=== PATIENT | female | born 1960 | race Caucasian/White ===

== ENCOUNTER → 2016-06-15 | Outpatient (CLI) | payer OTHER ==
--- NOTE | 2016-06-15 17:31 | DX ---
Lumbar Spine, Two Views 9:42 a.m. Indication: Follow up lumbar spine fusion. Comparison: May 03, 2016. Technique: Upright AP and lateral views. Findings: The lumbar spine is anatomically aligned. The posterior fusion construct at L4-L5, consist ing of dual posterior rods, bilateral transpedicular screws and radiopaque device in the L4-L5 interb desmond space is unchanged. No perihardware fracture or lucency. Mild degenerative disk and facet arthrop athy at L5-S1 are unchanged. Impression: L4-L5 posterior fusion construct remains well seated.
== END ==
LOC: CIMAGING 09:34
PROVIDERS: ATTEND Physician Assistant Surgical
DX: Z09 Encounter for follow-up examination after completed treatment for conditions other than malignant neoplasm (principal); Z98.1 Arthrodesis status
CPT/HCPCS: 72100-PO

== ENCOUNTER → 2016-07-24 | Outpatient (CLI) | payer OTHER | LOC: CIMAGING 11:07 | PROVIDERS: ATTEND Physician Assistant | DX: Z09 Encounter for follow-up examination after completed treatment for conditions other than malignant neoplasm (principal); Z98.890 Other specified postprocedural states | CPT/HCPCS: 72100-PO ==

== ENCOUNTER → 2016-10-15 | Outpatient (CLI) | payer OTHER | LOC: CIMAGING 11:11 | PROVIDERS: ATTEND Family Medicine | DX: Z12.31 Encounter for screening mammogram for malignant neoplasm of breast (principal); Z80.3 Family history of malignant neoplasm of breast | CPT/HCPCS: G0202 ==

== ENCOUNTER → 2016-11-06 | Outpatient (CLI) | payer OTHER | LOC: CIMAGING 12:56 | PROVIDERS: ATTEND Physician Assistant | DX: Z47.89 Encounter for other orthopedic aftercare (principal); Z98.1 Arthrodesis status | CPT/HCPCS: 72100-PO ==

== ENCOUNTER 2017-04-14 17:34 | Observation (INO) | payer OTHER ==
--- NOTE | 2017-04-14 17:50 | EDPHY ---
HPI/HX/ROS/PE/MDM Narrative: CHIEF COMPLAINT: Right leg DVT HPI: This patient is a 56 year old female arriving at the request of her primary care physician, Dr. Kilpatrick, for evaluation of a right-sided DVT. Ultrasound conducted earlier this evening shows deep vein thrombosis of the right popliteal and peroneal veins. She presented to her primary care physician's office with pain in her right lower calf onset one week ago. Now, her pain is localized more behind her knee. She denies any recent travel. She did feel "wheezy" and out of breath one week ago, but denies any current chest pain or shortness of breath. She has history of superficial thrombophlebitis, but no other known clotting disorders. She denies any recent trauma or illness; no vomiting, diarrhea, urinary complaints, headache, fever, or other associated symptoms. REVIEW OF SYSTEMS: Aside from elements discussed in the HPI, a comprehensive 10-point review of systems was reviewed and is negative. PMH: Remote history of epilepsy. Superficial thrombophlebitis. Spinal surgery. SOCIAL HISTORY: . Lives in [place]. at bedside. PHYSICAL EXAM: General:Patient is alert, in no acute distress. ENT:Eyes are normal to inspection. ENT inspection normal. Neck: Normal inspection. Full range of motion. Respiratory:No respiratory distress. Breath sounds normal bilaterally. Cardiovascular: Regular rate and rhythm. Strong peripheral pulses. Normal cap refill. Abdomen:The abdomen is nontender to palpation. There are no peritoneal signs. There are normal bowel sounds. Back: Normal to inspection. No tenderness to palpation. Skin: Normal color. No rash. Warm and dry. Extremities: Right lower extremity swollen with 1+ pedal edema. Mild tenderness to right popliteal area. Full range of motion. Neuro: Oriented x3. Normal motor function. Normal sensory function. ED Course: 56 year old female presents with deep vein thrombosis of the right popliteal and peroneal veins, diagnosed by ultrasound of the right lower extremity this evening. I spoke with Dr. Rousseau, the patient's primary care physician, prior to her arrival. Exam reveals swollen right lower extremity with 1+ pedal edema as well as mild tenderness to the right popliteal area. Plan for labs including CBC, BMP, Troponin. Due to patient's reported shortness of breath, plan for CTA chest to rule out PE. Laboratory studies unremarkable. Troponin elevated at 0.056. EKG was ordered and interpreted by myself. Please see [employer] system for official reading. Spoke with Dr. Hahn, radiologist. CTA positive for bilateral pulmonary emboli. Plan to admit. 19:[address] Stanley, hospitalist. She accepts admission for bilateral pulmonary emboli and DVT. 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 Recommend knee MRI for further evaluation. Extremity Venous Study 04/14/17 16:30 Impression: Deep vein thrombosis of the right popliteal and peroneal veins. Dr. Hahn discussed these findings by telephone with Dr. George at 1719 hours on 04/14/2017. Imaging: Discussed imaging studies w/ inbound call center representative Radiologist, I viewed and interpreted images myself Laboratory Results: Laboratory Results 04/14/17 18:00 04/14/17 18:00 04/14/17 04/14/17 04/14/17 18:00 18:00 18:00 WBC 6.42 10^3/uL 10^3/uL (3.80-9.50) RBC 4.35 10^6/uL 10^6/uL (4.18-5.33) Hgb 13.2 g/dL g/dL (12.6-16.3) POC Hgb 13.6 gm/dL gm/dL (12.6-16.3) Hct 38.4 % % (38.0-47.0) POC Hct 40 % % (38-47) MCV 88.3 fL fL (81.5-99.8) MCH 30.3 pg pg (27.9-34.1) MCHC 34.4 g/dL g/dL (32.4-36.7) RDW 12.0 % % (11.5-15.2) Plt Count 272 10^3/uL 10^3/uL (150-400) MPV 8.8 fL fL (8.7-11.7) Neut % (Auto) 65.3 % % (39.3-74.2) Lymph % (Auto) 25.2 % % (15.0-45.0) [place] % (Auto) 6.2 % % (4.5-13.0) Eos % (Auto) 2.6 % % (0.6-7.6) Baso % (Auto) 0.5 % % (0.3-1.7) Nucleat RBC Rel Count 0.0 % % (0.0-0.2) Absolute Neuts (auto) 4.19 10^3/uL 10^3/uL (1.70-6.50) Absolute Lymphs (auto) 1.62 10^3/uL 10^3/uL (1.00-3.00) Absolute Monos (auto) 0.40 10^3/uL 10^3/uL (0.30-0.80) Absolute Eos (auto) 0.17 10^3/uL 10^3/uL (0.03-0.40) Absolute Basos (auto) 0.03 10^3/uL 10^3/uL (0.02-0.10) Absolute Nucleated RBC 0.00 10^3/uL 10^3/uL (0-0.01) Immature Gran % 0.2 % % (0.0-1.1) Immature Gran # 0.01 10^3/uL 10^3/uL (0.00-0.10) POC Sodium 143 mEq/L mEq/L (134-144) Sodium 140 mEq/L mEq/L (134-144) POC Potassium 3.9 mEq/L mEq/L (3.3-5.0) Potassium 4.1 mEq/L mEq/L (3.5-5.2) POC Chloride 106 mEq/L mEq/L (97-110) Chloride 104 mEq/L mEq/L (97-110) Carbon Dioxide 25 mEq/l mEq/l (22-31) Anion Gap 11 mEq/L mEq/L (8-16) POC BUN 12 mg/dL mg/dL (7-23) BUN 13 mg/dL mg/dL (7-23) Creatinine 0.8 mg/dL mg/dL (0.6-1.0) POC Creatinine 0.8 mg/dL mg/dL (0.6-1.0) Estimated GFR > 60 Glucose 89 mg/dL mg/dL (70-100) POC Glucose 90 mg/dL mg/dL (70-100) Calcium 9.3 mg/dL mg/dL (8.5-10.4) Troponin I 0.056 ng/mL H ng/mL (0.000-0.034) Point of Care Test Results: 04/14/17 18:00 POC Sodium 143 POC Potassium 3.9 POC Chloride 106 POC BUN 12 POC Creatinine 0.8 POC Glucose 90 General Time Seen by Provider: 04/14/17 17:47 Initial Vital Signs: Initial Vital Signs Temperature (C) 37 C 04/14/17 17:40 Heart Rate 80 04/14/17 17:40 Respiratory Rate 18 04/14/17 17:40 Blood Pressure 164/86 H 04/14/17 17:40 O2 Sat (%) 94 04/14/17 17:40 O2 Delivery Mode Room Air Allergies/Adverse Reactions: No Known Allergies Allergy (Verified 04/14/17 17:37) Home Medications: Medication Instructions Recorded Cholecalciferol Vit D3 [Vitamin D3 5,000 units PO DAILY 03/17/16 (*)] Simvastatin 10 mg PO HS 03/17/16 carBAMazepine [TEGretol (*)] 200 mg PO HS 03/17/16 Acetaminophen [Tylenol 325mg (*)] 325 - 650 mg PO Q4HRS PRN #0 tab 05/05/16 Rivaroxaban [Xarelto 15mg (*)] 15 mg PO BIDMEAL #42 tab 04/15/17 Rivaroxaban [Xarelto] 20 mg PO DAILY #9 tablet 04/15/17 Departure - Departure Disposition: [facility] Inpatient Acute Clinical Impression: Bilateral pulmonary embolism DVT (deep venous thrombosis) Qualifiers: DVT location: lower extremity Affected thrombotic vein of extremity: popliteal Chronicity: acute Laterality: right Qualified Code(s): I82.431 - Acute embolism and thrombosis of right popliteal vein Condition: Fair Report Scribed for: Jose Johnson Report Scribed by: Phylicia Valenzuela Date of Report: 04/14/17 Time of Report: 17:53 Physician Review and Approval Statement: Portions of this note were transcribed by an ED scribe. I personally performed the history, physical exam, and medical decision making; and confirm the accuracy of the information in the transcribed note.
[2017-04-14 18:14] LABS: % IMMATURE GRANULYOCYTES 0.2 % (0.0-1.1); ABSOLUTE IMMATURE GRANULOCYTES 0.01 10^3/uL (0.00-0.10); ADD DIFF? NO; ADD MORPH? NO; ADD SCAN? NO; ATYPICAL LYMPHOCYTE FLAG 10 (0-99); FRAGMENT RBC FLAG 0 (0-99); HEMATOCRIT 38.4 % (38.0-47.0); HEMOGLOBIN 13.2 g/dL (12.6-16.3); LEFT SHIFT FLG 0 (0-99); LIPEMIA HEMOLYSIS FLAG 90 (0-99); MEAN CELL HEMOGLOBIN 30.3 pg (27.9-34.1); MEAN CELL HEMOGLOBIN CONCENTR. 34.4 g/dL (32.4-36.7); MEAN CELL VOLUME 88.3 fL (81.5-99.8); MEAN PLATELET VOLUME 8.8 fL (8.7-11.7); PLATELET CLUMPS FLAG 0 (0-99); PLATELET COUNT 272 10^3/uL (150-400); RED BLOOD CELL COUNT 4.35 10^6/uL (4.18-5.33)
[2017-04-14] MEDS ORDERED: IOPAMIDOL (ISOVUE 370) 100 ML BTL IV ONE ×2 (18:25→18:55)
[2017-04-14 18:29] LABS: ANION GAP 11 mEq/L (8-16); CALCIUM 9.3 mg/dL (8.5-10.4); CARBON DIOXIDE 25 mEq/l (22-31); CHLORIDE 104 mEq/L (97-110); CREATININE 0.8 mg/dL (0.6-1.0); GLOMERULAR FILTRATION RATE > 60; GLUCOSE 89 mg/dL (70-100); POTASSIUM 4.1 mEq/L (3.5-5.2); SODIUM 140 mEq/L (134-144)
[2017-04-14 18:52] LABS: TROPONIN I 0.056 ng/mL (0.000-0.034)
--- NOTE | 2017-04-14 19:26 | CPEKG ---
Heart Rate: 76 RR Interval: 789 P-R Interval: 131 QRSD Interval: 92 QT Interval: 396 QTC Interval: 446 P [place]: 0 QRS [place]: 48 T Wave [place]: 46 EKG Severity - NORMAL ECG - EKG Impression: SINUS RHYTHM Electronically Signed By: Jose Woody 16-Apr-2017 16:45:40
[2017-04-14] MEDS ORDERED: ONDANSETRON 4 MG/2 ML VIAL IVP PRN (20:18)
[2017-04-14] MEDS ORDERED: ONDANSETRON DISINTEGRATING 4 MG TAB PO PRN (20:18)
[2017-04-14] MEDS ORDERED: ACETAMINOPHEN 325 MG TAB PO PRN (20:18)
--- NOTE | 2017-04-14 22:58 | GHP ---
[f rep st] HISTORY AND PHYSICAL DATE OF ADMISSION: 04/14/2017 CHIEF COMPLAINT: Right lower extremity DVT. HISTORY OF PRESENT ILLNESS: A 56-year-old female with history of lumbar stenosis, chronic back pain, knee pain and recent polypectomy, presenting with right leg pain and swelling for 1 week. Some shortness of breath with walking and chest tightness with deep inspiration. No loss of consciousness, dizziness or lightheadedness. She recently had a colonoscopy that showed a large polyp, and subsequently underwent outpatient polypectomy at a facility in [facility]. After the procedure, she was less mobile than her normal. She does report decreased activity since a spinal surgery in April 2016. No personal or family history of clots. The polyp pathology was a tubulovillous adenoma. She has had a recent negative mammogram and Pap smear. In the emergency room, underwent an ultrasound showing a right leg DVT. CTA showed moderate volume of pulmonary emboli in the bilateral upper right middle and bilateral lower lobe pulmonary arterial branches. REVIEW OF SYSTEMS: I completed a 10-point review of systems, negative except as noted in HPI. PAST MEDICAL HISTORY: 1. Lumbar stenosis. 2. Epilepsy, but no seizures for 20 years. 3. External hemorrhoids, nonbleeding. 4. Recent polypectomy, path showing a tubulovillous adenoma. 5. Obesity. 6. Arthritis. 7. Hypertension. PAST SURGICAL HISTORY: 1. Posterior-lateral L4-L5 fusion. 2. L4-5 laminectomy. SOCIAL HISTORY: Lives in [place] with her . Originally from [place]. No alcohol, tobacco, or illicits. FAMILY HISTORY: No clots. HOME MEDICATIONS: Tegretol 200 mg at bedtime, simvastatin 10 mg at bedtime, vitamin D3, Tylenol as needed. ALLERGIES: No known drug allergies. PHYSICAL EXAMINATION: VITAL SIGNS: Temperature 37, blood pressure 164/86, heart rate in the 80s, 94% on room air, respirations 18. GENERAL: Overweight female, sitting up in bed, in no acute distress. HEENT: PERRLA. EOMI. Oropharynx clear. CV: Regular rate and rhythm. No murmurs, gallops, or rubs. No reproducible chest pain. LUNGS: Clear to auscultation. No wheezing or crackles. ABDOMEN: Soft, nontender, nondistended. Positive bowel sounds. : No suprapubic tenderness. MUSCULOSKELETAL: Right leg larger than left with mild erythema and tenderness over the calf and popliteal region. NEURO: 2 through 12 intact. PSYCH: Alert and oriented x3. IMAGING: CTA, moderate volume of pulmonary emboli in bilateral upper right middle and bilateral lobe pulmonary arterial branches. Ultrasound, DVT of right popliteal and peroneal veins. LABORATORY DATA: WBC 6.4, hemoglobin 13, hematocrit 38, platelets 272. D- dimer 6.7, sodium 143, potassium 3.9, chloride 106, creatinine 0.8. Troponin 0.056, calcium 9.3. EKG, personally reviewed by me, normal sinus rhythm, possible chondromalacia of patella. ASSESSMENT AND PLAN: 1. Acute pulmonary embolism/ right leg DVT: suspect this is provoked given increased immobility. Had a long discussion with patient and AC and she opted for Xarelto.15 mg twice daily for 21 days, then 20 mg daily after. She should follow up with her PCP. Will need at least 3 months treatment. She is hemodynamically stable not requiring oxygen. She has a mild bump in her troponin. Repeat this and monitor on telemetry in the PCU. 2. Epilepsy. Continue Tegretol. 3. Indeterminate troponin, likely secondary to clot burden. She is again hemodynamically stable. Plan as stated above. 4. Obesity. Counseled on nutrition, exercise. DIET: Regular. DEEP VENOUS THROMBOSIS PROPHYLAXIS: Is on Xarelto. DISPOSITION: Patient warrants observation admission given acute PE, mild indeterminate troponin warranting telemetry and further serial enzymes. /[id number]/MODL MTDD
[2017-04-14] MEDS ORDERED: CARBAMAZEPINE 100 MG CHEWABLE TAB PO SCH (23:45)
[2017-04-14] MEDS ORDERED: PRAVASTATIN SODIUM 20 MG TAB PO SCH (23:59)
[2017-04-15] MEDS: RIVAROXABAN 15 MG TAB PO SCH ×2 (00:08→08:10)
[2017-04-15 04:00] LABS: HEMATOCRIT 36.4 % (38.0-47.0); HEMOGLOBIN 12.8 g/dL (12.6-16.3); MEAN CELL HEMOGLOBIN 31.3 pg (27.9-34.1); MEAN CELL HEMOGLOBIN CONCENTR. 35.2 g/dL (32.4-36.7); RED BLOOD CELL COUNT 4.09 10^6/uL (4.18-5.33)
[2017-04-15 07:12] VITALS: BP 145/96; PULSE 69; RESP 16; TEMP 98.4; O2SAT 92
--- NOTE | 2017-04-15 15:22 | ASDISCHSUM ---
Discharge Information Plan Status:Home with No Needs Medically Cleared to Leave:04/14/2017 Discharge Date:04/15/2017 11:30 AM CM D/C Disposition:Home, Routine, Self-Care ADT D/C Disposition:Home, Routine, Self-Care Projected Discharge Date:04/15/2017 11:30 AM Transportation at D/C:Family Discharge Delay Reason: Follow-Up Date:04/15/2017 11:30 AM Discharge Slot: Final Diagnosis:Acute PE, RLE DVT, Epilepsy, interdeterinate troponin, obesity Placement Information Patient Contact Information Contact Name:TARI Relationship: Address:[address] Work Phone: City:[facility] Phone: [facility] Code:[place] [address] Email: Financial Information Financial Class:HMO and PPO Plans Primary Plan Desc:[employer] Primary Plan Number:[id number] Secondary Plan Desc: Secondary Plan Number: Assessment Information [facility] CM Progress Note CM Note CM Note Notes: Reviewed chart regarding discharge plan, pt's progress. Per MD notes, pt admitted for acute pulmonary embolism, right leg DVT w/ hx of epilepsy and obesity. Pt to discharge home independently today w/ family support and no identified needs. Pt to follow up as directed. No IM signed, not applicable. CM avail for any further issues or concerns. Date Signed: 04/15/2017 03:20 PM Electronically Signed By:Fabiana Desai RN Intervention Information
--- NOTE | 2017-04-15 15:36 | GDS ---
[f rep st] DISCHARGE SUMMARY DISCHARGE DIAGNOSES: 1. Acute pulmonary embolus and deep venous thrombosis. 2. Seizure disorder. 3. Obesity. HISTORY: Janice is a 56-year-old female who presented with right leg swelling, shortness of breath an d chest pain. She recently had a tubulovillous adenoma removed via colonoscopy and after the procedu re she was less mobile than typical. She has also had decreased mobility since a spinal surgery 04/24. She was found to have moderate volume pulmonary emboli as well as a right leg deep venous thrombosis but she was otherwise very stable. She was started on Xarelto. She will continue at 15 mg p.o. twic e daily for 3 weeks and then can transition to the 20 mg p.o. once a day dosing. Three months total anticoagulation was recommended. DISCHARGE MEDICATIONS: Please see computer record for full detailed list. NEW MEDICATIONS: Xarelto 15 mg p.o. twice daily for 21 days and then Xarelto 20 mg p.o. once a day t o continue 3 months of therapy. Patient was seen and examined by me on the day of discharge. /[id number]/MODL
== END 2017-04-15 11:30 | disposition home or self-care (01) ==
LOC: F2W 22:31
PROVIDERS: ADMIT Internal Medicine; ATTEND Internal Medicine
DX: I26.99 Other pulmonary embolism without acute cor pulmonale (principal); I82.431 Acute embolism and thrombosis of right popliteal vein; M25.562 Pain in left knee; G40.909 Epilepsy, unspecified, not intractable, without status epilepticus; R79.89 Other specified abnormal findings of blood chemistry; E66.9 Obesity, unspecified; Z68.41 Body mass index [BMI] 40.0-44.9, adult; M48.061 Spinal stenosis, lumbar region without neurogenic claudication; K64.9 Unspecified hemorrhoids; I10 Essential (primary) hypertension; Z98.890 Other specified postprocedural states; Z86.010 Personal history of colon polyps; Z98.1 Arthrodesis status
CPT/HCPCS: 71275; 73562; 93005; 93971; 99285; G0378; 82947-QW; Q9967

== ENCOUNTER → 2017-04-30 | Outpatient (CLI) | payer OTHER | LOC: CIMAGING 11:23 | PROVIDERS: ATTEND Physician Assistant | DX: Z09 Encounter for follow-up examination after completed treatment for conditions other than malignant neoplasm (principal); Z98.1 Arthrodesis status | CPT/HCPCS: 72100-PO ==

== ENCOUNTER 2017-06-03 11:57 | Emergency (ER) | payer OTHER ==
--- NOTE | 2017-06-03 13:01 | EDPHY ---
H & P Stated Complaint: l leg swelling with hx of dvt/pe Time Seen by Provider: 06/03/17 12:58 HPI/ROS: CHIEF COMPLAINT: Left lower extremity pain and swelling HISTORY OF PRESENT ILLNESS: The patient presents the ED for evaluation of mild left lower extremity pain and swelling. The patient has a history of DVT in her right leg which was diagnosed in March of 2017. She is currently on Xarelto. She denies any chest pain or shortness of breath. She does have a history of some mild chronic pain in her left knee. She denies any acute numbness or weakness. She denies fall or obvious trauma. REVIEW OF SYSTEMS: A comprehensive 10 point review of systems is otherwise negative aside from elements mentioned in the history of present illness. Source: Patient Exam Limitations: No limitations - Personal History Current Tetanus/Diphtheria Vaccine: Unsure - Medical/Surgical History Hx Asthma: No Hx Chronic Respiratory Disease: No Hx Diabetes: No Hx Cardiac Disease: No Hx Renal Disease: No Hx Cirrhosis: No Hx Alcoholism: No Hx HIV/AIDS: No Hx Splenectomy or Spleen Trauma: No Other PMH: epilepsy 30 years ago, colonoscopy 04/09 w/ tumor removal.dvt/pe - Social History Smoking Status: Former smoker - Physical Exam Exam: General Appearance: Alert, no distress Eyes: Pupils equal and round no pallor or injection ENT, Mouth: Mucous membranes moist Respiratory: There are no retractions, lungs are clear to auscultation Cardiovascular: Regular rate and rhythm Gastrointestinal: Abdomen is soft and nontender, no masses, bowel sounds normal Neurological: A&O, normal motor function, normal sensory exam, normal cranial nerves Skin: Warm and dry, no rashes Musculoskeletal: Neck is supple nontender Extremities: No appreciable asymmetry noted in the caps. Mild tenderness to palpation in the popliteal area. 2+ dorsalis pedis and posterior tibial pulses bilaterally Constitutional: Initial Vital Signs Temperature (C) 36.9 C 06/03/17 12:05 Heart Rate 83 06/03/17 12:05 Respiratory Rate 17 06/03/17 12:05 Blood Pressure 147/79 H 06/03/17 12:05 O2 Sat (%) 95 06/03/17 12:05 O2 Delivery Mode Room Air Allergies/Adverse Reactions: No Known Allergies Allergy (Verified 06/03/17 12:05) Home Medications: Medication Instructions Recorded Cholecalciferol Vit D3 [Vitamin D3 5,000 units PO DAILY 03/17/16 (*)] Simvastatin 10 mg PO HS 03/17/16 carBAMazepine [TEGretol (*)] 200 mg PO HS 03/17/16 Acetaminophen [Tylenol 325mg (*)] 325 - 650 mg PO Q4HRS PRN #0 tab 05/05/16 Rivaroxaban [Xarelto 15mg (*)] 15 mg PO BIDMEAL #42 tab 04/15/17 Rivaroxaban [Xarelto] 20 mg PO DAILY #9 tablet 04/15/17 Medical Decision Making - Diagnostics Imaging Results: Imaging Impressions Extremity Venous Study 06/03/17 12:38 Impression: No evidence of deep vein thrombosis. Findings discussed with Chandan Gloria 06/03/2017 at 13:16. ED Course/Re-evaluation: The patient presents to the ED for evaluation of left leg pain with subjective swelling. The patient was noted to have no evidence of arterial insufficiency on exam. She has no clinical evidence of septic arthritis, cellulitis or abscess. She is currently anticoagulated with Xarelto. The patient did undergo a lower extremity ultrasound which demonstrates no evidence of a DVT. At this point time I do not feel that further workup is indicated. The patient is advised to follow up with her primary care provider as scheduled. She should return to the ED for any worrisome symptoms such as increasing pain, numbness, weakness or other concerns. Differential Diagnosis: Differential diagnosis considered includes cellulitis, abscess, DVT, superficial thrombophlebitis Departure - Departure Disposition: Home, Routine, Self-Care Clinical Impression: Pain of left calf Right leg DVT Qualifiers: Chronicity: chronic Condition: Good Instructions: Deep Vein Thrombosis (ED) Additional Instructions: 1. There is no evidence of a blood clot in your left leg. 2. Please continue your Xarelto as prescribed. 3. Return to the ED for markedly worsening pain, swelling, fever or other concerns. Referrals: Radha Kilpatrick MD [Primary Care Provider] - As per Instructions
[2017-06-03 13:30] LABS: PLATELET COUNT 228 10^3/uL (150-400)
[2017-06-03 13:42] LABS: INR 1.11 (0.83-1.16); PROTIME(PATIENT) 14.5 SEC (12.0-15.0)
[2017-06-03 14:10] VITALS: BP 137/99; PULSE 76; RESP 18; TEMP 97.9; O2SAT 96
== END 2017-06-03 14:10 | disposition home or self-care (01) ==
DX: M79.662 Pain in left lower leg (principal); I82.501 Chronic embolism and thrombosis of unspecified deep veins of right lower extremity; Z79.01 Long term (current) use of anticoagulants; Z87.891 Personal history of nicotine dependence

== ENCOUNTER → 2017-10-19 | Outpatient (CLI) | payer OTHER | LOC: CIMAGING 12:40 | PROVIDERS: ATTEND Family Medicine | DX: Z12.31 Encounter for screening mammogram for malignant neoplasm of breast (principal); Z80.3 Family history of malignant neoplasm of breast ==